=== PATIENT | female | born 1975 | race Caucasian/White ===

== ENCOUNTER 2017-05-02 10:17 | Emergency (ER) | payer BC, OTHER ==
[2017-05-02] MEDS ORDERED: IBUPROFEN 200 MG TAB PO ONE (10:36)
[2017-05-02] MEDS ORDERED: ONDANSETRON ODT 8 MG TAB SL ONE (10:36)
[2017-05-02] MEDS ORDERED: ALUMINUM & MAGNESIUM HYDROXIDE 30 ML UD PO ONE (10:36)
--- NOTE | 2017-05-02 11:23 | RAD ---
EXAM DESCRIPTION: Chest,2 Views CLINICAL HISTORY: cough, vomiting, fever COMPARISON: Chest radiograph dated March 05, 2011 FINDINGS: Frontal and lateral views of the chest. Cardiac silhouette and pulmonary vascularity are within normal limits. Lungs are clear without focal consolidative infiltrates. No pleural effusion. No pneumothorax. Degenerative changes of the thoracic spine. IMPRESSION: No radiographic evidence of acute cardiopulmonary disease. Electronically signed by: Josias Payan MD 05/02/2017 11:23 AM CDT
[2017-05-02] MEDS ORDERED: OSELTAMIVIR 75 MG CAP PO ONE (11:40)
[2017-05-02] MEDS ORDERED: levoFLOXacin 500 MG TAB PO ONE (11:40)
--- NOTE | 2017-05-02 11:42 | ED.PDOC ---
History of Present Illness - General Chief Complaint: GI Problem Stated Complaint: Vomiting, diarrhea, fever Time Seen by Provider: 05/02/17 10:19 Source: patient Exam Limitations: no limitations - History of Present Illness Initial Comments: the patient is a 41-year-old female presenting to the emergency room secondary toapproximately 12-18 hours of symptoms of cough with associated nausea vomiting and diarrhea. She has not had the vomiting or diarrhea for the last 6 hours. She does have a fever. Mild sore throat and mild runny nose. Her cough is persistent. She does have some rales in the left lower lobe. She does have good air movement. No focal abdominal pain. She has had a history of agastric sleeve. Timing/Duration: 24 hours Severity: moderate Improving Factors: nothing Worsening Factors: nothing Associated Symptoms: cough, loss of appetite, malaise, nausea/vomiting Allergies/Adverse Reactions: Allergies Codeine Allergy (Verified 05/02/17 10:28) Rash Home Medications: Ambulatory Orders Hydrocodone-Acetaminophen [Hydrocodone Bitartrate/AC 10-325 mg] 1 tab PO BID PRN 05/02/17 Hydroxyzine HCl 25 mg PO BID 05/02/17 Ondansetron [Zofran Odt] 4 mg PO Q4H PRN #10 tab 05/02/17 Oseltamivir Capsule [Tamiflu] 75 mg PO BID 5 Days #10 capsule 05/02/17 Zolpidem Tartrate [Zolpidem Tartrate] 10 mg PO BEDTIME 05/02/17 levoFLOXacin [Levaquin] 500 mg PO DAILY #5 tab 05/02/17 tiZANidine [Zanaflex] 4 mg PO BEDTIME 05/02/17 Review of Systems - Review of Systems Constitutional: States: fever, malaise EENTM: States: nose congestion, throat pain - mild Respiratory: States: cough Cardiology: States: no symptoms reported Gastrointestinal/Abdominal: States: diarrhea, nausea, vomiting Genitourinary: States: no symptoms reported Musculoskeletal: States: no symptoms reported - mild generalized body aches Skin: States: no symptoms reported Neurological: States: no symptoms reported Endocrine: States: no symptoms reported All other Systems: No Change from Baseline Past Medical History (General) - Patient Medical History Hx Stroke: No Hx Congestive Heart Failure: No Hx Diabetes: No Hx MRSA: No Surgical History: Hysterectomy - Vaccination History Hx Influenza Vaccination: No Hx Pneumococcal Vaccination: No - Social History Hx Tobacco Use: No - Female History Patient is a Female of Child Bearing Age (10 -59 yrs old): No - Hysterectomy Family Medical History - Family History Mother Living Status: Still Living Hx Family Hypertension: Yes Hx Family Diabetes: Yes Physical Exam - Physical Exam General Appearance: Alert, Other - she obviously does not feel good Eye Exam: bilateral normal Ears, Nose, Throat: hearing grossly normal, nasal congestion, pharyngeal erythema - mild Neck: full range of motion, supple Respiratory: no respiratory distress, no accessory muscle use, other - she does have some mild left lower lobe rales Cardiovascular/Chest: normal peripheral pulses, regular rate, rhythm, no edema Peripheral Pulses: radial,right: 2+, radial,left: 2+, dorsalis pedis,right: 2+, dorsalis pedis,left: 2+ Gastrointestinal/Abdominal: non tender - very mild epigastric discomfort palpation, soft Rectal Exam: deferred Back Exam: normal inspection, no CVA tenderness, no vertebral tenderness Extremity: normal range of motion, non-tender, normal inspection, no pedal edema , normal capillary refill 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 She does also have a fever. This is possibly influenza however we are unable to test for it at this time. The patient also does appear to have some left lower lobe rales indicating the start of a possible pneumonia. Chest x-ray is clear at this time. The patient is going to be placed on combination therapy of Tamiflu and Levaquin to cover for both possible viral and bacterial etiologies. She'll also be written for Zofran for as needed use to control any nausea and vomiting. She can take over- the-counter Pepcid twice daily to help reduce any stomach irritation as she has had a gastric sleeve in the past. She needs to keep herself well hydrated. Motrin can be taken 3 times daily with food to help reduce fever and Tylenol can be used in between as well to help reduce fever and symptoms. She needs to follow up with her primary care doctor later this week. ER warnings were given for any worsening. - Results/Orders Results/Orders: chest x-ray shows no acute pathology Departure - Departure Clinical Impression: Pneumonia Qualifiers: Pneumonia type: due to unspecified organism Laterality: left Lung location: lower lobe of lung Qualified Code(s): J18.1 - Lobar pneumonia, unspecified organism Nausea and vomiting Qualifiers: Vomiting type: unspecified Vomiting Intractability: non-intractable Qualified Code(s): R11.2 - Nausea with vomiting, unspecified Disposition: Discharge to Home or Self Care Condition: Fair Departure Forms: ED Discharge - Pt. Copy, Patient Portal Self Enrollment Instructions: DI for Gastritis Diet: bland diet Activity: increase activity as tolerated Prescriptions: levoFLOXacin [Levaquin] 500 mg PO DAILY #5 tab Ondansetron [Zofran Odt] 4 mg PO Q4H PRN #10 tab PRN Reason: Vomiting Oseltamivir Capsule [Tamiflu] 75 mg PO BID 5 Days #10 capsule Home Medications: Ambulatory Orders Hydrocodone-Acetaminophen [Hydrocodone Bitartrate/AC 10-325 mg] 1 tab PO BID PRN 05/02/17 Hydroxyzine HCl 25 mg PO BID 05/02/17 Ondansetron [Zofran Odt] 4 mg PO Q4H PRN #10 tab 05/02/17 Oseltamivir Capsule [Tamiflu] 75 mg PO BID 5 Days #10 capsule 05/02/17 Zolpidem Tartrate [Zolpidem Tartrate] 10 mg PO BEDTIME 05/02/17 levoFLOXacin [Levaquin] 500 mg PO DAILY #5 tab 05/02/17 tiZANidine [Zanaflex] 4 mg PO BEDTIME 05/02/17 Additional Instructions: the patient is a 41-year-old female presenting with a cough with some associated nausea vomiting and diarrhea. She does also have a fever. This is possibly influenza however we are unable to test for it at this time. The patient also does appear to have some left lower lobe rales indicating the start of a possible pneumonia. Chest x-ray is clear at this time. The patient is going to be placed on combination therapy of Tamiflu and Levaquin to cover for both possible viral and bacterial etiologies. She'll also be written for Zofran for as needed use to control any nausea and vomiting. She can take over- the-counter Pepcid twice daily to help reduce any stomach irritation as she has had a gastric sleeve in the past. She needs to keep herself well hydrated. Motrin can be taken 3 times daily with food to help reduce fever and Tylenol can be used in between as well to help reduce fever and symptoms. She needs to follow up with her primary care doctor later this week. ER warnings were given for any worsening.
[2017-05-02 12:00] VITALS: BP 113/69; TEMP 102.6; O2SAT 100
== END 2017-05-02 12:00 | disposition home or self-care (01) ==
LOC: ER 10:17
DX: J18.1 Lobar pneumonia, unspecified organism (principal); R11.2 Nausea with vomiting, unspecified

== ENCOUNTER → 2018-05-09 | Outpatient (CLI) | payer OTHER | LOC: YCFC.O 15:44 | PROVIDERS: ATTEND Nurse Practitioner Family | DX: R58 Hemorrhage, not elsewhere classified (principal); K90.9 Intestinal malabsorption, unspecified; Z98.84 Bariatric surgery status ==

== ENCOUNTER → 2018-05-17 | Outpatient (CLI) | payer OTHER | LOC: YCFC.O 16:08 | PROVIDERS: ATTEND Nurse Practitioner Family | DX: R30.0 Dysuria (principal) ==

== ENCOUNTER 2018-11-24 10:40 | Emergency (ER) | payer OTHER ==
[2018-11-24] MEDS ORDERED: CLINDAMYCIN IV 900MG 900 MG in PREMIX BAG 1 BAG IVPB ONE (10:59)
[2018-11-24] MEDS ORDERED: SODIUM CHLORIDE 0.9% 1000ML 1,000 ML IVS ONE (10:59)
[2018-11-24] MEDS ORDERED: CLINDAMYCIN IV 900MG 0 ML IVPB ONE (11:20)
[2018-11-24] MEDS ORDERED: CLINDAMYCIN PHOSPHATE 150 MG/ML VIAL IM ONE (12:12)
--- NOTE | 2018-11-24 12:29 | ED.PDOC ---
History of Present Illness - General Chief Complaint: Dental/Mouth Stated Complaint: R lower jaw discomfort, swelling Time Seen by Provider: 11/24/18 10:57 Source: patient, RN notes reviewed, Vital Signs reviewed Exam Limitations: no limitations - History of Present Illness Initial Comments: patient is a 43-year-old white female who presents with complaints of right jaw swelling and pain. And her dentist yesterday who was going to call her in a prescription for antibiotics but apparently this did not occur. patient complain of fever last night but does not know her temperature she did not have a thermometer to take it at home. Patient denies any nausea, vomiting, shortness of breath, chest pain, blurry vision, dizziness, headache or diarrhea. The pain increases with palpation or any cold liquids or trying to chew. Pain is improved after Tylenol. The pain is throbbing in nature and is severe. Timing/Duration: gradual, yesterday Severity: severe EENT Location: dental - right posterior jaw Prearrival Treatment: over the counter meds - Tylenol. Improving Factors: nothing Worsening Factors: cold therapy, eating, movement Associated Symptoms: fever, poor fluid intake, poor solids intake, tooth pain Allergies/Adverse Reactions: Allergies Codeine Allergy (Verified 11/24/18 10:52) Rash Home Medications: Ambulatory Orders Hydrocodone-Acetaminophen [Hydrocodone Bitartrate/AC 10-325 mg] 1 tab PO BID PRN 05/02/17 Hydroxyzine HCl 25 mg PO BID 05/02/17 Zolpidem Tartrate 10 mg PO BEDTIME 05/02/17 tiZANidine [Zanaflex] 4 mg PO BEDTIME 05/02/17 Clindamycin HCl [Cleocin] 300 mg PO Q6H #40 capsule 11/24/18 Review of Systems - Review of Systems Constitutional: States: see HPI, fever EENTM: States: see HPI, mouth pain, mouth swelling Respiratory: States: no symptoms reported Cardiology: States: no symptoms reported Gastrointestinal/Abdominal: States: no symptoms reported Genitourinary: States: no symptoms reported Musculoskeletal: States: no symptoms reported Skin: States: no symptoms reported Neurological: States: no symptoms reported Endocrine: States: no symptoms reported Hematologic/Lymphatic: States: no symptoms reported All other Systems: Reviewed and Negative Past Medical History (General) - Patient Medical History Hx Stroke: No Hx Congestive Heart Failure: No Hx Diabetes: No Hx MRSA: No Surgical History: Hysterectomy, other - Vaccination History Hx Influenza Vaccination: No Hx Pneumococcal Vaccination: No - Social History Hx Tobacco Use: No Hx Alcohol Use: No - Female History Patient is a Female of Child Bearing Age (10 -59 yrs old): No Family Medical History - Family History Mother Living Status: Still Living Hx Family Hypertension: Yes Hx Family Diabetes: Yes Physical Exam - Physical Exam General Appearance: Alert, Anxious, Obvious distress, Well Developed, Well Hydrated, Well Nourished Eye Exam: bilateral normal Ear Exam: bilateral ear: auricle normal Nasal Exam: normal inspection Throat Exam: dental tenderness, mandibular swelling - no obvious fluctuance. Patient does not have any trismus or voice changes. Floor of her mouth is not elevated nor tender to palpation. Neck: non-tender, full range of motion, supple, trachea midline, lymphadenopathy (R) Cardiovascular/Respiratory: regular rate, rhythm, no M/R/G, normal peripheral pulses, normal breath sounds, no respiratory distress Abdominal Exam: non-tender, no organomegaly Neurologic: third rigger II-XII nml as tested, no motor/sensory deficits, alert, normal mood/affect, oriented x 3 Skin Exam: normal color, warm/dry Progress - Progress Progress: 11/24/18 12:30 Patient does not have a white count. She does have marked swelling but no obvious abscess. Unable to obtain an IV for CT scans. I do not believe that the risks associated with central line justified placing such line to justify these risks.I will give the patient clindamycin IM here and a prescription to fill this afternoon for the remaining doses that she will need. A stridor or does not appear to have any type of airway obstruction. Any elevation of the floor the mouth and therefore I do not believe that she has a Ojse's angina. I have given patient strong warnings to return for increased difficulty breathing, increased swelling, increased pain, drainage, chills. She voices understanding and agreement with the plan of care. Patient is to follow-up with her dentist on Monday. Dillon Garcia M.D. #[id number] - Results/Orders Results/Orders: 11/24/18 10:59 Soft Tissue Neck w/Contrast [CT] Stat Laboratory Results - last 24 hr 11/24/18 11/24/18 10:57 10:58 WBC 9.5 RBC 4.92 Hgb 13.1 Hct 39.7 MCV 80.6 L MCH 26.6 L MCHC 33.0 RDW 14.0 Plt Count 198 MPV 7.5 Absolute Neuts (auto) 7.60 H Absolute Lymphs (auto) 0.90 L Absolute Monos (auto) 0.80 Absolute Eos (auto) 0.20 Absolute Basos (auto) 0.10 Neutrophils % 79.5 H Lymphocytes % 9.0 L Monocytes % 8.3 Eosinophils % 2.4 Basophils % 0.8 Sodium 138 Potassium 4.5 Chloride 101 Carbon Dioxide 25 Anion Gap 16.5 BUN 12 Creatinine 0.66 BUN/Creatinine Ratio 18.2 Random Glucose 95 Serum Osmolality 275.2 Calcium 9.2 Total Bilirubin 1.8 H AST 22 ALT 16 Alkaline Phosphatase 64 Serum Total Protein 7.7 Albumin 3.5 Globulin 4.2 H Albumin/Globulin Ratio 0.8 L Departure - Departure Clinical Impression: Dental abscess, Dental caries Time of Disposition: 12:37 Disposition: Discharge to Home or Self Care Condition: Fair Departure Forms: ED Discharge - Pt. Copy, Patient Portal Self Enrollment Instructions: DI for Dental Pain, Tooth Abscess (DC) Referrals: Faby Amador NP [Primary Care Provider] - 1-2 Weeks Prescriptions: Clindamycin HCl [Cleocin] 300 mg PO Q6H #40 capsule Home Medications: Ambulatory Orders Hydrocodone-Acetaminophen [Hydrocodone Bitartrate/AC 10-325 mg] 1 tab PO BID PRN 05/02/17 Hydroxyzine HCl 25 mg PO BID 05/02/17 Zolpidem Tartrate 10 mg PO BEDTIME 05/02/17 tiZANidine [Zanaflex] 4 mg PO BEDTIME 05/02/17 Clindamycin HCl [Cleocin] 300 mg PO Q6H #40 capsule 11/24/18
[2018-11-24 12:49] VITALS: BP 111/69; TEMP 99.1; O2SAT 98
== END 2018-11-24 12:50 | disposition home or self-care (01) ==
LOC: ER 10:40
DX: K04.7 Periapical abscess without sinus (principal); K02.9 Dental caries, unspecified; Z88.5 Allergy status to narcotic agent
CPT/HCPCS: 36415; 80053; 85025; J3490